=== PATIENT | female | born 1970 | race Caucasian/White ===

== ENCOUNTER 2021-12-24 10:52 | Emergency (ER) | payer OTHER ==
[~2021-12-24] VITALS: Ht 165.1 cm; Wt 68.0 kg
[~2021-12-24 10:52] MED LIST: AMLO10TA59 PO; BENA20TA9 PO
--- NOTE | 2021-12-24 11:00 | NUR ---
Patient arrived to [facility]. Alert, oriented, ambulatory with c/o headache on/off x 10 days. IV inserted to right AC. CT head pending. Labs drawn. Medications given per order. Will await results of lab and CT.
[2021-12-24] MEDS ORDERED: ACETAMINOPHEN ES 500 MG TABLET ONE (11:33)
[2021-12-24] MEDS ORDERED: diphenhydrAMINE 50 MG/1 ML VIAL ONE (11:35)
[2021-12-24] MEDS ORDERED: METOCLOPRAMIDE HCL 10 MG/2 ML VIAL ONE (11:35)
[2021-12-24 11:42] LABS: CREATININE 0.7 mg/dL (0.6-1.3)
[2021-12-24] MEDS: diphenhydrAMINE 50 MG/1 ML VIAL IV ONE (11:43)
[2021-12-24] MEDS: ACETAMINOPHEN ES 500 MG TABLET PO ONE (11:43)
[2021-12-24] MEDS: METOCLOPRAMIDE HCL 10 MG/2 ML VIAL IV ONE (11:43)
[2021-12-24] MEDS: IV NORMAL SALINE 1000 ML BAG IV ONE (11:43)
[2021-12-24 11:44] LABS: HEMATOCRIT 39.6 % (31.2-41.9); MEAN CORPUSCULAR HEMOGLOBIN 32.1 uug (24.7-32.8); MEAN CORPUSCULAR VOLUME 94.5 fL (75.5-95.3); PLATELET COUNT (AUTO) 446 K/uL (179-408)
[2021-12-24] MEDS ORDERED: IBUP-1955 PO (11:57)
[2021-12-24] MEDS: KETOROLAC TROMETHAMINE 15 MG INJ IVP ONE (13:14)
--- NOTE | 2021-12-24 13:15 | NUR ---
Patient discharged to home. VSS. No c/o pain. Alert, oriented x 4, ambulatory. IV to right AC removed, tolerated well. Provided and reviewed discharge/follow up instructions. Verbalized understanding of instructions. She did not want ordered toradol before leaving. All belongings with the patient.
[2021-12-24 13:21] VITALS: BP 137/85
== END 2021-12-24 13:22 | disposition home or self-care (01) ==
LOC: ER 10:52
DX: R51.9 Headache, unspecified (principal); Z86.16 Personal history of COVID-19; I10 Essential (primary) hypertension; Z79.899 Other long term (current) drug therapy; F41.9 Anxiety disorder, unspecified
CPT/HCPCS: 99284; 96374; 70450; 71045; 96361; 96375; 80048; 82962; 85025; 36415; J1200; J2765; J7040; A4663; A9150